=== PATIENT | male | born 2000 | race African-American/Black ===

== ENCOUNTER 2022-08-09 08:00 | Outpatient (CLI) | payer SELFPAY ==
[2022-08-09 22:24] LABS: CHLAMYDIA TRACHOMATIS DNA NEGATIVE (NEGATIVE); NEISSERIA GONORRHOEAE DNA NEGATIVE (NEGATIVE)
== END 2022-08-09 23:59 | disposition home or self-care (01) ==
LOC: LAB.N 08:00
PROVIDERS: ATTEND Family Medicine
DX: R36.9 Urethral discharge, unspecified (principal); Z20.2 Contact with and (suspected) exposure to infections with a predominantly sexual mode of transmission
CPT/HCPCS: 87491; 87591; 87661

== ENCOUNTER 2023-06-20 14:04 | Emergency (ER) | payer SELFPAY ==
[2023-06-20 14:24] VITALS: BP 126/63; O2SAT 99
[2023-06-20 14:38] LABS: BILIRUBIN,URINE NEGATIVE (NEGATIVE); GLUCOSE, URINE (UA) NEGATIVE (NEGATIVE); KETONES,URINE (UA) NEGATIVE (NEGATIVE); LEUKOCYTE ESTERASE, URINE TRACE (NEGATIVE); NITRITE,URINE NEGATIVE (NEGATIVE); OCCULT BLOOD,URINE NEGATIVE (NEGATIVE); PROTEIN,URINE NEGATIVE (NEGATIVE); UROBILINOGEN,URINE 0.2 (NORMAL) E.U./dL (NORMAL)
[2023-06-20 14:41] LABS: CLARITY,URINE CLEAR (CLEAR)
[2023-06-20] MEDS ORDERED: LIDOCAINE 1% 2 ML VIAL MC ONE (14:44)
[2023-06-20] MEDS ORDERED: cefTRIAXone 500 MG VIAL IM STA (14:44)
--- NOTE | 2023-06-20 14:47 | ED Physician Documentation ---
PD HPI MALE - Stated complaint Stated Complaint: - Chief complaint Chief Complaint: General - History obtained from History obtained from: Patient - Additional information Additional information: Patient is a 22-year-old male presenting for evaluation of dysuria and penile discharge for the past 3 days. Patient reports having clear discharge. No blood. No rashes or testicular pain. No fevers. Unsure of any known exposures to STIs recently. Review of Systems Constitutional: denies: Fever Cardiac: denies: Chest pain / pressure Respiratory: denies: Dyspnea GI: denies: Abdominal Pain : reports: Dysuria, Discharge. denies: Testicular pain PD PAST MEDICAL HISTORY - Past Medical History Past Medical History: No Cardiovascular: None Respiratory: None Neuro: None Endocrine/Autoimmune: None GI: None : None HEENT: None Psych: None Musculoskeletal: None Derm: None - Past Surgical History Past Surgical History: No - Present Medications Home Medications: Ambulatory Orders Medication Instructions Recorded Confirmed Doxycycline Hyclate 100 mg PO BID #14 tab 06/20/23 - Allergies Allergies/Adverse Reactions: Allergies Allergy/AdvReac Type Severity Reaction Status Date / Time No Known Drug Allergies Allergy Verified 06/20/23 14:18 - Social History Does the pt smoke?: Yes Smoking Status: Current every day smoker Does the pt drink ETOH?: No Does the pt have substance abuse?: No - Immunizations Immunizations are current?: Yes - POLST Patient has POLST: No PD ED PE NORMAL - General General: Alert and oriented X 3, No acute distress, Well developed/nourished - Respiratory Respiratory: No respiratory distress - Abdomen Abdomen: Normal bowel sounds, Soft, Non tender, Non distended - Male Male : Mix Chemist present (KEELEY Altamirano), Other (No testicular tenderness, no rashes or lesions) Results - Vitals Vitals: Vital Signs - 24 hr 06/20/23 14:12 Temperature 37.3 C Heart Rate 68 Respiratory 18 Rate Blood Pressure 126/63 O2 Saturation 99 Oxygen O2 Source Room air - Labs Labs: Laboratory Tests 06/20/23 14:20 Urine Color YELLOW Urine Clarity CLEAR Urine pH 7.0 Ur Specific [place] 1.010 Urine Protein NEGATIVE Urine Glucose (UA) NEGATIVE Urine Ketones NEGATIVE Urine Occult Blood NEGATIVE Urine Nitrite NEGATIVE Urine Bilirubin NEGATIVE Urine Urobilinogen 0.2 (NORMAL) Ur Leukocyte Esterase TRACE H Urine RBC 0-5 Urine WBC 11-25 H Urine WBC Clumps PRESENT Ur Squamous Epith Cells RARE Squamous Urine Bacteria Few Urine Mucus Few Strands Ur Microscopic Review INDICATED Urine Culture Comments INDICATED PD Medical Decision Making - ED course ED course: Patient is a 22-year-old male presenting for evaluation of abnormal penile discharge and dysuria. No rashes or lesions seen on exam. No testicular tenderness. Urine analysis is reviewed. Discussed prophylactic treatment for STIs which patient is agreeable to. Patient given a dose of IM Rocephin and prescription for doxycycline. Chlamydia and gonorrhea testings are pending. Patient counseled on need for follow-up if symptoms or not improving as well as concerning symptoms to return for. Departure - Departure Disposition: Home, Self Care Clinical Impression: Penile discharge, Dysuria Condition: Stable Instructions: ED Urethritis Infec Vs Inflam Male Prescriptions: Doxycycline Hyclate 100 mg PO BID #14 tab Comments: Based on your symptoms today I am starting you on medications to cover for possibly sexually transmitted infection. We are testing you for gonorrhea and chlamydia and this test should be back tomorrow. In the meanwhile we have given you a dose of Rocephin and I will continue you on 7 days of an oral antibiotic. This has been sent to [facility] in [place]. Please refrain from any sexual intercourse Until you complete Your antibiotics. If any of your tests are positive then please notify sexual partners of possible exposure or need for treatment. Please follow-up with your primary care provider if your symptoms or not improving with treatment. Forms: PCP List Discharge Date/Time: 06/20/23 15:14
[2023-06-20 14:49] LABS: BACTERIA,URINE Few /HPF (None Seen); RBC,URINE 0-5 /HPF (0-5); SQUAMOUS EPITHELIAL CELL,UR RARE Squamous (<= Few); WBC CLUMPS,URINE PRESENT
[2023-06-20 14:50] LABS: MUCUS,URINE Few Strands
[2023-06-20 17:45] LABS: CHLAMYDIA TRACHOMATIS DNA POSITIVE (NEGATIVE); NEISSERIA GONORRHOEAE DNA NEGATIVE (NEGATIVE); TRICHOMONAS VAGINALIS DNA NEGATIVE (NEGATIVE)
== END 2023-06-20 15:14 | disposition home or self-care (01) ==
LOC: ED 14:04
DX: R30.0 Dysuria (principal); R36.9 Urethral discharge, unspecified; F17.200 Nicotine dependence, unspecified, uncomplicated
CPT/HCPCS: 81001; 81003; 87086; 87491; 87591; 87661; 96372; 99283

== ENCOUNTER 2024-01-28 08:00 | Outpatient (CLI) | payer MEDICAID ==
[2024-01-28 23:09] LABS: CHLAMYDIA TRACHOMATIS DNA NEGATIVE (NEGATIVE); NEISSERIA GONORRHOEAE DNA NEGATIVE (NEGATIVE); TRICHOMONAS VAGINALIS DNA NEGATIVE (NEGATIVE)
== END 2024-01-28 23:59 | disposition home or self-care (01) ==
LOC: LAB.N 08:00
PROVIDERS: ATTEND Physician Assistant Medical
DX: R36.9 Urethral discharge, unspecified (principal)
CPT/HCPCS: 87491; 87591; 87661

== ENCOUNTER 2024-02-04 07:51 | Emergency (ER) | payer MEDICAID ==
--- NOTE | 2024-02-04 08:13 | ED Physician Documentation ---
PD HPI MALE - Stated complaint Stated Complaint: - Chief complaint Chief Complaint: UTI - History obtained from History obtained from: Patient - History of Present Illness Timing - onset: How many weeks ago (2) Timing - duration: Weeks (2) Timing - details: Gradual onset, Still present Associated symptoms: Dysuria, Discharge (watery/mucoid) PD HPI MALE CONTRIB FACTORS: Sexually active (just single partner in recent past) Recently seen: Not recently seen Review of Systems Skin: denies: Rash, Lesions Musculoskeletal: reports: Other (has noted some tender spots on forearms without papules.) PD PAST MEDICAL HISTORY - Past Medical History Past Medical History: Yes Cardiovascular: None Respiratory: None Neuro: None Endocrine/Autoimmune: None GI: None : None HEENT: None Psych: None Musculoskeletal: None Derm: None - Past Surgical History Past Surgical History: No - Present Medications Home Medications: Ambulatory Orders Medication Instructions Recorded Confirmed Doxycycline Hyclate 100 mg PO BID 7 Days #14 cap 02/04/24 - Allergies Allergies/Adverse Reactions: Allergies Allergy/AdvReac Type Severity Reaction Status Date / Time No Known Drug Allergies Allergy Verified 02/04/24 08:00 - Social History Does the pt smoke?: No Smoking Status: Never smoker Does the pt drink ETOH?: No Does the pt have substance abuse?: Yes Substance Use and Type: Marijuana - Immunizations Immunizations are current?: Yes - POLST Patient has POLST: No PD ED PE NORMAL - Vitals Vital signs reviewed: Yes - General General: Alert and oriented X 3, No acute distress, Well developed/nourished - Male Male : Deferred - Derm Derm: Normal color, Warm and dry - Extremities Extremities: Other (no noted rash. Couple of small tender spots on forearms without pustules/etc. ) Results - Vitals Vitals: Vital Signs - 24 hr 02/04/24 08:02 Temperature 36.4 C L Heart Rate 61 Respiratory 14 Rate Blood Pressure 130/72 O2 Saturation 100 Oxygen O2 Source Room air PD Medical Decision Making - ED course Complexity details: considered differential (The patient with urethritis symptoms and had had unprotected sexual encounter a few weeks ago. He is concerned about STI. We can test for GC and chlamydia but it does sound most likely chlamydia. We talked about potential other testing and he was agreeable to syphilis and HIV blood testing. ), d/w patient ED course: The patient was agreeable to concurrent treatment of GC and chlamydia. He states he is reliable with oral medication so we went with the ceftriaxone here and then doxycycline twice daily as the literature supports a higher clearance rate by that method compared to the single dose azithromycin. Departure - Departure Disposition: 01 Home, Self Care Clinical Impression: Urethritis Condition: Stable Record reviewed to determine appropriate education?: Yes Instructions: ED STD Male Treated Prescriptions: Doxycycline Hyclate 100 mg PO BID 7 Days #14 cap Comments: You were given an injection of ceftriaxone here and then a prescription for doxycycline twice daily for the next week. This should cover the main germs to be causing this. We did do blood test also for syphilis and HIV to make sure no other STIs were transmitted. These blood tests will take couple of days for the result. Will call if very any are positive and you can also look up the results online through the patient portal. The urethral symptoms will decrease over the next couple of days as the infection clears and the inflammation improves. Recheck if not resolved over the next 3 to 5 days. Tylenol ibuprofen if needed for pains. Stay well- hydrated. I sent your prescription to the [facility] in [place]. Discharge Date/Time: 02/04/24 09:00
[2024-02-04 08:17] VITALS: BP 130/72; O2SAT 100
[2024-02-04] MEDS: cefTRIAXone 1 GM VIAL IM STA (08:49)
[2024-02-04] MEDS: DOXYCYCLINE 100 MG TABLET PO STA (08:49)
[2024-02-04] MEDS: LIDOCAINE 1% 2 ML VIAL MC ONE (08:50)
[2024-02-04 23:17] LABS: CHLAMYDIA TRACHOMATIS DNA NEGATIVE (NEGATIVE); NEISSERIA GONORRHOEAE DNA NEGATIVE (NEGATIVE); TRICHOMONAS VAGINALIS DNA NEGATIVE (NEGATIVE)
[2024-02-05 07:10] LABS: HIV SCREEN 4TH GENERATION Non Reactive (Non Reactive)
== END 2024-02-04 09:00 | disposition home or self-care (01) ==
LOC: ED 07:51
DX: N34.2 Other urethritis (principal)
CPT/HCPCS: 36415; 86780; 87389; 87491; 87591; 87661; 96372; 99283; 99284; A9270